=== PATIENT | female | born 1995 | race Caucasian/White ===

== ENCOUNTER 2024-07-21 06:53 | Emergency (ER) | payer BC, SELFPAY ==
[2024-07-21] VITALS (7 sets, daily range): BP systolic 90–106; BP diastolic 60–69; BMI 18.0
--- NOTE | 2024-07-21 07:32 | ED.GENMED ---
History of Present Illness
<TRAM Lima - Last Filed: 07/21/24 10:36>
General
Chief Complaint: Abdominal Symptoms
Source: patient
Exam Limitations: none
Time Seen by Provider: 07/21/24 07:09
Nursing documentation reviewed up to this point in time: agreed with
History of Present Illness
History of Present Illness:
Patient is a 29-year-old female who presents to the ER for evaluation of nausea vomiting. 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 She was at work last night and started with nausea
and vomiting at 6 PM. She reports she vomited all night long. She has taken a total of 16 mg of Zofran but last took it at midnight cannot tolerate it orally anymore and is unable to tolerate ice chips. She does have a history of reflux and is on
omeprazole does have some reflux pain in her epigastric region. She denies any urinary frequency urgency dysuria.
Review of Systems
<TRAM Lima - Last Filed: 07/21/24 10:36>
Review of Systems
Allergies reviewed?: Yes
All Other Systems: ROS reviewed and negative except as documented in HPI and ROS
Constitutional: Reports fatigue
EENT: Reports no symptoms
Respiratory: Reports no symptoms
ABD/GI: Reports abdominal pain, nausea, vomiting and other (mild epigastric discomfort)
: Reports no symptoms
Musculoskeletal: Reports no symptoms
Skin: Reports no symptoms
Neurological: Reports no symptoms
Psychiatric: Reports no symptoms
Phy Exam
<TRAM Lima - Last Filed: 07/21/24 10:36>
General Physical Exam
General Presentation: no apparent distress
General age: appears stated age
General Skin: warm and dry
General Habitus: normal
General Mental: alert
General Hydration: dry mucous membranes
Cardiovascular Exam
Cardiovascular Exam: regular rate/rhythm, no murmur and normal peripheral pulses
Pulmonary Exam
Pulmonary Exam: lungs clear and no respiratory distress
Gastrointestinal Exam
Gastrointestinal Exam: other (no abd tenderness )
Neurological Exam
Neurological Exam: alert and oriented x3
Musculoskeletal Exam
Musculoskeletal Exam: full ROM
Skin Exam
Skin Exam: normal color and warm/dry
Course
<TRAM Lima - Last Filed: 07/21/24 10:36>
Orders/Labs/Results
Orders:
Orders
07/21/24 07:31
Electrocardiogram (*1) Stat
Reason for Study: Abdominal Pain
Cardiac Monitoring- Treatment ONCE
EKG- Treatment ONCE
IV Insert/Care/Rem.- Treatment PRN
0.9% Sodium Chloride 1000 ml [Nss] 1,000 ml IV BOLUS
Ondansetron Injectable [Zofran] 4 mg IV NOW STA
Test Result ONCE
07/21/24 07:32
Famotidine [Pepcid] 20 mg IV NOW STA
07/21/24 07:34
Ketorolac [Toradol] 15 mg IV NOW STA
07/21/24 07:37
Complete Blood Count/With Diff Urgent
Comprehensive Metabolic Panel Urgent
HCG, Serum Qualitative Screen Urgent
07/21/24 08:54
0.9% Sodium Chloride 1000 ml [Nss] 1,000 ml IV BOLUS
Pantoprazole [Protonix IV] 40 mg IV NOW STA
Promethazine [Phenergan] 25 mg 0.9% Sodium Chloride 50 ml [Nss] 50 ml IV NOW
07/21/24 09:16
Prochlorperazine [Compazine] 10 mg IV NOW STA
07/21/24 09:33
Diphenhydramine [Benadryl] 50 mg .ROUTE .STK-MED ONE
07/21/24 09:35
Diphenhydramine [Benadryl] 25 mg IV NOW STA
07/21/24 09:48
Diphenhydramine [Benadryl] 50 mg .ROUTE .STK-MED ONE
07/21/24 09:49
Diphenhydramine [Benadryl] 25 mg IV NOW STA
Abnormal Lab Results
07/21/24
07:37
MCH 31.5 H pg
(27.0-31.0)
Abs Immat Gran (auto) 0.1 H 10^3/uL
(0-0.05)
Absolute Neuts (auto) 8.9 H 10^3/uL
(1.4-6.5)
Absolute Lymphs (auto) 0.4 L 10^3/uL
(1.2-3.4)
Immature Gran % 0.6 H %
(0-0.5)
Neutrophils % 93.4 H %
(42.2-75.2)
Lymphocytes % 3.7 L %
(20.5-51.1)
Carbon Dioxide 21 L mmol/L
(22-30)
Glucose 105 H mg/dl
(70-99)
Total Bilirubin 1.5 H mg/dl
(0.2-1.3)
07/21/24 07:37
07/21/24 07:37
Vital Signs
Initial and Last Documented VS:
Initial Vital Signs
Temp Pulse Resp BP Pulse Ox
98.3 F 100 18 99/65 100
07/21/24 06:56 07/21/24 06:56 07/21/24 06:56 07/21/24 06:56 07/21/24 06:56
Last Documented Vital Signs
Temp Pulse Resp BP Pulse Ox
98.3 F 108 16 90/60 98
07/21/24 06:56 07/21/24 09:30 07/21/24 09:30 07/21/24 09:00 07/21/24 09:30
[employer] consulted with Physician
[employer] consulted with physician?: Yes
Name of Physician Consulted: Cheli
<Taurus Bower, DO - Last Filed: 07/21/24 07:43>
Orders/Labs/Results
Orders:
Orders
07/21/24 07:31
Electrocardiogram (*1) Stat
Reason for Study: Abdominal Pain
Cardiac Monitoring- Treatment ONCE
EKG- Treatment ONCE
IV Insert/Care/Rem.- Treatment PRN
0.9% Sodium Chloride 1000 ml [Nss] 1,000 ml IV BOLUS
Ondansetron Injectable [Zofran] 4 mg IV NOW STA
Test Result ONCE
07/21/24 07:32
Famotidine [Pepcid] 20 mg IV NOW STA
07/21/24 07:34
Ketorolac [Toradol] 15 mg IV NOW STA
07/21/24 07:37
Complete Blood Count/With Diff Urgent
Comprehensive Metabolic Panel Urgent
HCG, Serum Qualitative Screen Urgent
07/21/24 08:54
0.9% Sodium Chloride 1000 ml [Nss] 1,000 ml IV BOLUS
Pantoprazole [Protonix IV] 40 mg IV NOW STA
Promethazine [Phenergan] 25 mg 0.9% Sodium Chloride 50 ml [Nss] 50 ml IV NOW
07/21/24 09:16
Prochlorperazine [Compazine] 10 mg IV NOW STA
07/21/24 09:33
Diphenhydramine [Benadryl] 50 mg .ROUTE .STK-MED ONE
07/21/24 09:35
Diphenhydramine [Benadryl] 25 mg IV NOW STA
07/21/24 09:48
Diphenhydramine [Benadryl] 50 mg .ROUTE .STK-MED ONE
07/21/24 09:49
Diphenhydramine [Benadryl] 25 mg IV NOW STA
Abnormal Lab Results
07/21/24
07:37
MCH 31.5 H pg
(27.0-31.0)
Abs Immat Gran (auto) 0.1 H 10^3/uL
(0-0.05)
Absolute Neuts (auto) 8.9 H 10^3/uL
(1.4-6.5)
Absolute Lymphs (auto) 0.4 L 10^3/uL
(1.2-3.4)
Immature Gran % 0.6 H %
(0-0.5)
Neutrophils % 93.4 H %
(42.2-75.2)
Lymphocytes % 3.7 L %
(20.5-51.1)
Carbon Dioxide 21 L mmol/L
(22-30)
Glucose 105 H mg/dl
(70-99)
Total Bilirubin 1.5 H mg/dl
(0.2-1.3)
07/21/24 07:37
07/21/24 07:37
Vital Signs
Initial and Last Documented VS:
Initial Vital Signs
Temp Pulse Resp BP Pulse Ox
98.3 F 100 18 99/65 100
07/21/24 06:56 07/21/24 06:56 07/21/24 06:56 07/21/24 06:56 07/21/24 06:56
Last Documented Vital Signs
Temp Pulse Resp BP Pulse Ox
98.3 F 108 16 90/60 98
07/21/24 06:56 07/21/24 09:30 07/21/24 09:30 07/21/24 09:00 07/21/24 09:30
<TRAM Lima - Last Filed: 07/21/24 10:36>
MDM/Problems Addressed
Differential Diagnosis Includes:
Not limited to gastroenteritis/viral syndrome, dehydration
MDM/Problems Addressed:
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 She has taken Zofran at home however was unable to even tolerate ice chips. She complains of bodyaches.
She presents awake alert is dry on exam denies any fevers is afebrile with a normal white count. Patient was given Zofran and fluids here along with Pepcid. She does have a history of reflux and feels that this is acting up. She is on omeprazole
at home. She had persistent nausea and was given a dose of Compazine and did develop restless feeling she was given Benadryl after.
Patient was monitored here feeling better and requesting to go home better after Benadryl tolerating oral fluids likely viral syndrome labs unremarkable stable for discharge home.
<TRAM Lima - Last Filed: 07/21/24 10:36>
*Critical Care Note
Total Time (30-74mins, 75-104mins- exclusive of procedures): Not Applicable
ED Attending Note
<TRAM Lima - Last Filed: 07/21/24 10:36>
-
Portions of this chart may have been created with voice recognition software.� Occasional wrong word or��sound alike� substitutions may have occurred due to the inherent limitations of voice recognition software.
<Taurus Bower DO - Last Filed: 07/21/24 07:43>
ED Attending Note
Patient seen and examined by attending physician: Yes
I performed the substantive portion of visit, reviewed & personally made and approve the management plan that is documented in note by myself or PAM.: Yes
ED Attending Note:
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
Discharge Plan
Departure
Patient Disposition: Home (Routine Discharge)
Date of Disposition: 07/21/24
Time of Disposition: 10:29
Patient with high blood pressure during this ER visit?: No
Condition: Fair
Covid-19: Not Applicable
Discharge Problem:
Nausea and vomiting
Instructions: Nausea and Vomiting, Adult (DC)
Referrals:
John Paul Cantrell MD [Family Provider] -
Activity Restrictions/Additional Instructions:
As discussed clear liquids for the next 24 hours followed by bland solid foods as tolerated. You may take your Zofran as needed. Follow-up with your family doctor in the next several days .
return if any worsening of symptoms.
Interventions
Interventions:
*General Assessment Last Done: 07/21/24 07:35
*Neglect/Abuse Screening Last Done: 07/21/24 07:08
*ED- Fall Risk Assessment Last Done: 07/21/24 07:41
*ED COVID-19 Vaccine History Last Done: 07/21/24 06:56
[place]-Adyrub-Hxrglawmmq Assessment Last Done: 07/21/24 07:41
Discharge Date and Time
Print Language: MONGOLIAN
[2024-07-21] MEDS: NSS 1000 IV ×2 (07:38→09:19)
[2024-07-21] MEDS: TORADOL 15 MG IV (07:39)
[2024-07-21] MEDS: PEPCID 20 MG IV (07:40)
[2024-07-21] MEDS: ZOFRAN 4 MG IV (07:40)
[2024-07-21 07:50] LABS: % Basophils 0.2 % (0-2); % Eosinophils 0.1 % (0-6); % Immature Granulocytes 0.6 % (0-0.5); % Lymphocytes 3.7 % (20.5-51.1); % Neutrophils 93.4 % (42.2-75.2); Absolute Immature Granulocytes 0.1 10^3/uL (0-0.05); Absolute Lymphocytes 0.4 10^3/uL (1.2-3.4); Absolute Monocytes 0.2 10^3/uL (0.1-0.6); Absolute Neutrophils 8.9 10^3/uL (1.4-6.5); Hematocrit 41.5 % (37.0-47.0); Hemoglobin 14.7 g/dL (12.0-16.0); Mean Corp Hgb Conc. 35.4 g/dL (33.0-37.0); Mean Corpuscular Hgb 31.5 pg (27.0-31.0); Mean Corpuscular Volume 89.1 fL (81.0-99.0); Mean Platelet Volume 9.9 fL (7.4-10.4); Nucleated Red Blood Cells % 0 %; Platelet Count 205 10^3/uL (130-400); Red Blood Cell Count 4.66 10^6/uL (4.20-5.40); Red Cell Dist. Width 12.4 % (11.5-14.5); White Blood Cell Count 9.6 10^3/uL (4.8-10.8)
[2024-07-21 08:03] LABS: HCG, Serum Qualitative Screen Negative
[2024-07-21 08:07] LABS: ALT (SGPT) 17 U/L (0-35); AST (SGOT) 19 U/L (14-36); Albumin 4.2 g/dl (3.5-5.0); Alkaline Phosphatase 49 U/L (38-126); Blood Urea Nitrogen 15 mg/dl (7-17); Calcium 9.4 mg/dl (8.4-10.2); Carbon Dioxide 21 mmol/L (22-30); Chloride 104 mmol/L (98-107); Estimated Creatinine Clearance 85 ml/min; Glucose 105 mg/dl (70-99); Potassium 3.7 mmol/L (3.5-5.1); Sodium 136 mmol/L (135-145); Total Bilirubin 1.5 mg/dl (0.2-1.3); Total Protein 6.5 g/dl (6.3-8.2); eGFR > 60.00
[2024-07-21] MEDS: COMPAZINE 10 MG IV (09:19)
[2024-07-21] MEDS: PROTONIX IV 40 MG IV (09:20)
[2024-07-21] MEDS: BENADRYL 25 MG IV ×2 (09:36→09:50)
== END 2024-07-21 10:55 | disposition home or self-care (01) ==
LOC: EMR 06:53
PROVIDERS: Nurse Practitioner; EMERGENCY PHYSICIAN Emergency Medicine; FAMILY PHYSICIAN Internal Medicine
DX: R11.2 Nausea with vomiting, unspecified (principal)
CPT/HCPCS: 99284; 96374; 96375 ×5; 80053; 84703; 85025; 93005